=== PATIENT | female | born 1945 | race Caucasian/White ===

== ENCOUNTER 2017-10-27 13:46 | Day surgery (SDC) | payer OTHER, MEDICARE ==
[2017-10-27 14:12] VITALS: BMI 19.5
[2017-10-27] MEDS ORDERED: BUPIVACAINE HCL/PF 2.5 MG/ML - 30 ML VIAL IJ ONE (14:17)
[2017-10-27] MEDS ORDERED: PROPOFOL 20 ML ONE ×3 (14:44→15:30)
[2017-10-27] MEDS ORDERED: ceFAZolin SODIUM 1 GM VIAL ONE (15:31)
[2017-10-27] MEDS ORDERED: ONDANSETRON 4 MG/2 ML VIAL IVPUSH PRN (15:55)
[2017-10-27] MEDS ORDERED: oxyCODONE HCL 5 MG TABLET PO PRN (15:55)
[2017-10-27] MEDS ORDERED: LACTATED RINGERS SOLUTION 1,000 ML IV SCH (16:00)
[2017-10-27] MEDS ORDERED: IBUPROFEN 600 MG TABLET (FP) PO ONE (16:15)
[2017-10-27 16:20] VITALS: TEMP 97.8
[2017-10-27 17:19] VITALS: BP 145/74; PULSE 73
--- NOTE | 2017-10-29 12:40 | OP ---
DATE OF OPERATION: 10/27/2017 LOCATION: [facility]. SURGEON: Johann Del Real MD CURRICULUM DESIGNER: BERNARDA Medina PREOPERATIVE DIAGNOSIS: Left distal radius fracture. POSTOPERATIVE DIAGNOSIS: Left distal radius fracture. PROCEDURE: Closed reduction and percutaneous pinning of left distal radius fracture. FINDING: Displaced extraarticular fracture, distal radius. PROCEDURE: Informed consent was obtained. She was taken to the operating room, where the left upper extremity was prepped and draped in sterile fashion. Tourniquet was placed on the upper arm but not inflated. Reduction maneuver was performed. This was confirmed with C-arm fluoroscopy. She was found to have an anatomic reduction. With the use of C-arm fluoroscopy, 6.2 K wires were placed from the radial styloid across the fracture site. This was confirmed in AP, lateral, and oblique views and found to have reduction of the distal radius fracture. An 11 blade was used to create a 4-mm release around the pins to prevent impinging. Sterile dressing and splint was placed. The patient was transferred to the recovery room without complication. JOHANN DEL REAL M.D. [id number]
== END 2017-10-27 17:05 | disposition home or self-care (01) ==
LOC: FASU 13:46
PROVIDERS: ATTEND Orthopaedic Surgery
PROC: 0PSJ34Z Reposition Left Radius with Internal Fixation Device, Percutaneous Approach (ICD-10-PCS; principal; 2017-10-27 15:33)
DX: S52.502A Unspecified fracture of the lower end of left radius, initial encounter for closed fracture (principal); X58.XXXA Exposure to other specified factors, initial encounter; Y93.9 Activity, unspecified; Y92.9 Unspecified place or not applicable
CPT/HCPCS: 73110-TC-LR-FY

== ENCOUNTER 2023-05-15 14:27 | Emergency (ER) | payer OTHER, MEDICARE ==
[2023-05-15 14:44] VITALS: BP 168/66; PULSE 72; RESP 16; TEMP 98.2; BMI 18.9
[2023-05-15] MEDS ORDERED: DIPHTH,PERTUSS(ACELL),TET 0.5 ML DISP.SYRIN IM ONE ×2 (15:43→15:45)
== END 2023-05-15 15:48 | disposition home or self-care (01) ==
LOC: JERFT 14:27
PROC: 3E0234Z Introduction of Serum, Toxoid and Vaccine into Muscle, Percutaneous Approach (ICD-10-PCS; principal; 2023-05-15)
DX: T63.441A Toxic effect of venom of bees, accidental (unintentional), initial encounter (principal); R22.31 Localized swelling, mass and lump, right upper limb; L53.9 Erythematous condition, unspecified
CPT/HCPCS: 90471; 90715; 99282-25